=== PATIENT | female | born 1995 | race Two or more races ===

== ENCOUNTER 2017-02-20 17:05 | Emergency (ER) | payer SELFPAY ==
[~2017-02-20] VITALS: Ht 154.9 cm; Wt 88.0 kg
[2017-02-20] MEDS ORDERED: IV NORMAL SALINE 1000ML BAG 1,000 ML IV ONE (17:30)
[2017-02-20 17:44] LABS: BILIRUBIN,URINE NEGATIVE (NEG); GLUCOSE,URINE NEGATIVE (NEG); NITRITE,URINE NEGATIVE (NEG); PH,URINE 5.5; PROTEIN,URINE NEGATIVE (NEG-TRACE); UROBILINOGEN,URINE 0.2 mg/dL (0.2 mg/dL)
[2017-02-20 17:51] LABS: BACTERIA,URINE MANY /HPF (0-FEW); RBC,URINE 0 /HPF (0-2); SQUAMOUS EPITHELIAL CELL,UR MANY /LPF
[2017-02-20 18:01] LABS: BASO # 0.1 x10^3/uL (0.0-0.2); BASO % 1 % (0-3); EOS % 1 % (0-3); HEMATOCRIT 38.8 % (36.0-47.0); LYMPH # 2.2 x10^3/uL (1.0-4.8); LYMPH % 20 % (24-48); MEAN CORPUSCULAR HEMOGLOBIN 31 pg (25-35); MEAN CORPUSCULAR HGB CONC 33 g/dL (31-37); MEAN CORPUSCULAR VOLUME 91 fL (79-100); MONO % 7 % (0-9); NEUT % 72 % (31-73); PLATELET COUNT 240 x10^3/uL (140-400); RED BLOOD COUNT 4.26 x10^6/uL (3.50-5.40); RED CELL DISTRIBUTION WIDTH 14.1 % (11.5-14.5); WHITE BLOOD COUNT 11.1 x10^3/uL (4.0-11.0)
--- NOTE | 2017-02-20 18:01 | RAD ---
EXAM: Obstetric ultrasound. HISTORY: Pelvic pain in . COMPARISON: None. FINDINGS: Sonographic evaluation of the pelvis was performed transabdominally. The uterus is anteverted and measures 9.9 x 7.1 x 7.6 cm. There is a single intrauterine gestation measuring 11 weeks 2 days. heart rate is 175 bpm. No subchorionic collection is identified. The right ovary measures 3.4 x 1.6 x 2.0 cm. The left measures 3.3 x 2.3 x 1.5 cm. There is normal flow bilaterally. IMPRESSION: 1. Single intrauterine gestation measuring 11 weeks 2 days. heart rate 175 bpm. Electronically signed by: Ariana Camara MD (02/20/2017 5:57 PM) [facility]
[2017-02-20 18:17] LABS: CREATININE 0.7 mg/dL (0.6-1.0); GFR 106.7; POTASSIUM 3.9 mmol/L (3.5-5.1)
[2017-02-20 18:30] LABS: ALBUMIN 3.2 g/dL (3.4-5.0); ALBUMIN/GLOBULIN RATIO 0.8 (1.0-1.7); TOTAL BILIRUBIN 0.1 mg/dL (0.2-1.0); TOTAL PROTEIN 7.4 g/dL (6.4-8.2)
--- NOTE | 2017-02-20 18:37 | PHYS DOC ---
Past Medical History Past Medical History: No Pertinent History Past Surgical History: No Surgical History Alcohol Use: None Drug Use: None Adult General Chief Complaint Chief Complaint: ABDOMINAL PAIN IN HPI HPI Patient is a 21 year old female who is 1 para 0 who presents to the ER today secondary to abdominal discomfort. Patient reports she found that she is approximately 3 days ago. Patient has any hypertension diabetes liver longer kidney pals. Patient had no abdominal surgeries. Patient reports she has not been in the past. Patient does not smoke or do any drugs. Patient is allergic to any medications. Patient denies any prior abdominal surgeries. Patient reports her last menstrual period was normal was November 27. Patient presents here today complaining of suprapubic abdominal discomfort and a stretching sensation. Patient has any vaginal bleeding or vaginal discharge. Patient has any fevers shakes chills. Patient reports been feeling nauseous with a couple episodes of vomiting over the last couple days. Patient has any diarrhea. Patient has any dysuria frequency or urgency. Patient has any cough cold or runny nose. Patient has any chest pain or shortness of breath. Patient's physical exam the ER was significant for some mild tenderness to palpation in the suprapubic region. Patient has no rebound or guarding. Patient does not present with any signs or symptoms O be consistent with an acute surgical abdomen. Constitutional: Denies fever or chills [] Eyes: Denies change in visual acuity, redness, or eye pain [] HENT: Denies nasal congestion or sore throat [] All other review systems are negative except as documented in the history of present illness portion. Constitutional: Well developed, well nourished, no acute distress, non-toxic appearance. [] HENT: Normocephalic, atraumatic, bilateral external ears normal, oropharynx moist, no oral exudates, nose normal. [] Eyes: no discharge. [] Neck: Normal range of motion, no tenderness, supple, no stridor. [] Cardiovascular:Heart rate regular rhythm, Lungs & Thorax: Bilateral breath sounds clear to auscultation [] Abdomen: Bowel sounds normal, soft, mild. Pubic tenderness, no masses, no pulsatile masses. [] Skin: Warm, dry, no erythema, no rash. [] Back: No tenderness, no CVA tenderness. [] Extremities: No tenderness, no cyanosis, no clubbing, ROM intact, no edema. [] Neurologic: Alert and oriented X 3, normal motor function, normal sensory function, no focal deficits noted. [] Psychologic: Affect normal, judgement normal, mood normal. [] Patient's ER workup was significant for normal labs. Patient has a normal urinalysis, CBC, chemistry. Patient's ultrasound revealed an 11 week IUP with heart activity. Patient be given a copy of the ultrasound pictures. Assessment and plan this is a 21-year-old female who presents here today secondary to abdominal discomfort while . Patient is 1 para 0. Patient has no history of ectopic or tubal pregnancies in the past. Patient's ultrasound was unremarkable and revealed an 11 week intrauterine with heart activity. Patient will be discharged home. Patient will need to follow-up with her primary care physician/OB doctor for further OB care. Patient does not have any active vaginal bleeding, vaginal discharge, vaginal complaints at this time. Patient be stable for discharged home. Laboratory Tests Test 02/20/17 16:33 02/20/17 17:23 02/20/17 17:55 Bedside Urine HCG, Qualitative Hcg positive Urine Collection Type Unknown Urine Color Yellow Urine Clarity Clear Urine pH 5.5 Urine Specific Goodman 1.020 Urine Protein Negative mg/dL Urine Glucose (UA) Negative mg/dL Urine Ketones (Stick) Negative mg/dL Urine Blood Negative Urine Nitrite Negative Urine Bilirubin Negative Urine Urobilinogen Dipstick 0.2 mg/dL Urine Leukocyte Esterase Small Urine RBC 0 /HPF Urine WBC 1-4 /HPF Urine Squamous Epithelial Cells Many /LPF Urine Bacteria Many /HPF Urine Mucus Mod /LPF White Blood Count 11.1 x10^3/uL Red Blood Count 4.26 x10^6/uL Hemoglobin 13.0 g/dL Hematocrit 38.8 % Mean Corpuscular Volume 91 fL Mean Corpuscular Hemoglobin 31 pg Mean Corpuscular Hemoglobin Concent 33 g/dL Red Cell Distribution Width 14.1 % Platelet Count 240 x10^3/uL Neutrophils (%) (Auto) 72 % Lymphocytes (%) (Auto) 20 % Monocytes (%) (Auto) 7 % Eosinophils (%) (Auto) 1 % Basophils (%) (Auto) 1 % Neutrophils # (Auto) 7.9 x10^3uL Lymphocytes # (Auto) 2.2 x10^3/uL Monocytes # (Auto) 0.7 x10^3/uL Eosinophils # (Auto) 0.1 x10^3/uL Basophils # (Auto) 0.1 x10^3/uL Sodium Level 138 mmol/L Potassium Level 3.9 mmol/L Chloride Level 104 mmol/L Carbon Dioxide Level 26 mmol/L Anion Gap 8 Blood Urea Nitrogen 8 mg/dL Creatinine 0.7 mg/dL Estimated GFR (Cockcroft-Gault) 106.7 BUN/Creatinine Ratio 11 Glucose Level 79 mg/dL Calcium Level 9.0 mg/dL Total Bilirubin 0.1 mg/dL Aspartate Amino Transf (AST/SGOT) 15 U/L Alanine Aminotransferase (ALT/SGPT) 26 U/L Alkaline Phosphatase 60 U/L Total Protein 7.4 g/dL Albumin 3.2 g/dL Albumin/Globulin Ratio 0.8 Current Medications Medications (Trade) Dose Ordered Sig/Edward Route PRN Reason Start Time Stop Time Status Last Admin Dose Admin Sodium Chloride 1,000 ml @ 1,000 mls/hr 1X ONCE IV 02/20/17 17:30 02/20/17 18:29 DC 02/20/17 17:54 1,000 MLS/HR Current Medications Current Medications Current Medications Medications (Trade) Dose Ordered Sig/Edward Start Time Stop Time Status Last Admin Dose Admin Sodium Chloride 1,000 ml @ 1,000 mls/hr 1X ONCE 02/20/17 17:30 02/20/17 18:29 DC 02/20/17 17:54 1,000 MLS/HR Allergies Allergies Allergies Coded Allergies Type Severity Reaction Last Updated Verified No Known Drug Allergies 02/20/17 No Current Patient Data Vital Signs Vital Signs Date Time Temp Pulse Resp B/P (MAP) Pulse Ox O2 Delivery O2 Flow Rate FiO2 02/20/17 17:15 98.2 65 16 122/73 (89) 95 Room Air 98.2 Lab Values Laboratory Tests Test 02/20/17 16:33 02/20/17 17:23 02/20/17 17:55 POC Urine HCG, Qualitative Hcg positive (Negative) Urine Collection Type Unknown Urine Color Yellow Urine Clarity Clear Urine pH 5.5 Urine Specific Goodman 1.020 Urine Protein Negative mg/dL (NEG-TRACE) Urine Glucose (UA) Negative mg/dL (NEG) Urine Ketones (Stick) Negative mg/dL (NEG) Urine Blood Negative (NEG) Urine Nitrite Negative (NEG) Urine Bilirubin Negative (NEG) Urine Urobilinogen Dipstick 0.2 mg/dL (0.2 mg/dL) Urine Leukocyte Esterase Small (NEG) Urine RBC 0 /HPF (0-2) Urine WBC 1-4 /HPF (0-4) Urine Squamous Epithelial Cells Many /LPF Urine Bacteria Many /HPF (0-FEW) Urine Mucus Mod /LPF White Blood Count 11.1 x10^3/uL (4.0-11.0) H Red Blood Count 4.26 x10^6/uL (3.50-5.40) Hemoglobin 13.0 g/dL (12.0-15.5) Hematocrit 38.8 % (36.0-47.0) Mean Corpuscular Volume 91 fL (79-100) Mean Corpuscular Hemoglobin 31 pg (25-35) Mean Corpuscular Hemoglobin Concent 33 g/dL (31-37) Red Cell Distribution Width 14.1 % (11.5-14.5) Platelet Count 240 x10^3/uL (140-400) Neutrophils (%) (Auto) 72 % (31-73) Lymphocytes (%) (Auto) 20 % (24-48) L Monocytes (%) (Auto) 7 % (0-9) Eosinophils (%) (Auto) 1 % (0-3) Basophils (%) (Auto) 1 % (0-3) Neutrophils # (Auto) 7.9 x10^3uL (1.8-7.7) H Lymphocytes # (Auto) 2.2 x10^3/uL (1.0-4.8) Monocytes # (Auto) 0.7 x10^3/uL (0.0-1.1) Eosinophils # (Auto) 0.1 x10^3/uL (0.0-0.7) Basophils # (Auto) 0.1 x10^3/uL (0.0-0.2) Sodium Level 138 mmol/L (136-145) Potassium Level 3.9 mmol/L (3.5-5.1) Chloride Level 104 mmol/L (98-107) Carbon Dioxide Level 26 mmol/L (21-32) Anion Gap 8 (6-14) Blood Urea Nitrogen 8 mg/dL (7-20) Creatinine 0.7 mg/dL (0.6-1.0) Estimated GFR (Cockcroft-Gault) 106.7 BUN/Creatinine Ratio 11 (6-20) Glucose Level 79 mg/dL (70-99) Calcium Level 9.0 mg/dL (8.5-10.1) Total Bilirubin 0.1 mg/dL (0.2-1.0) L Aspartate Amino Transferase (AST) 15 U/L (15-37) Alanine Aminotransferase (ALT) 26 U/L (14-59) Alkaline Phosphatase 60 U/L (46-116) Total Protein 7.4 g/dL (6.4-8.2) Albumin 3.2 g/dL (3.4-5.0) L Albumin/Globulin Ratio 0.8 (1.0-1.7) L Laboratory Tests 02/20/17 17:55 Laboratory Tests 02/20/17 17:55 EKG EKG [] Radiology/Procedures Radiology/Procedures [] Course & Med Decision Making Course & Med Decision Making Pertinent Labs and Imaging studies reviewed. (See chart for details) [] Dragon Disclaimer Dragon Disclaimer This electronic medical record was generated, in whole or in part, using a voice recognition dictation system. Departure Departure Impression: Primary Impression: Abdominal pain affecting Disposition: 01 HOME, SELF-CARE Condition: IMPROVED Referrals: NO PCP (PCP) Patient Instructions: Abdominal Pain During Additional Instructions: Please follow up with her primary care physician or OB doctor for further OB care. Return to the ER for any further pain, bleeding, any other concerns. RAFAEL JUNIOR MD Feb 20, 2017 18:37
[2017-02-20 18:50] VITALS: BP 96/51
== END 2017-02-20 19:01 | disposition home or self-care (01) ==
LOC: ER 17:05
DX: O26.891 Other specified pregnancy related conditions, first trimester (principal); R10.30 Lower abdominal pain, unspecified; R11.2 Nausea with vomiting, unspecified; Z3A.11 11 weeks gestation of pregnancy
CPT/HCPCS: 36415; 76801; 80053; 81001; 81025; 84702; 85027; 86901; 87086; 96360; 99285; J7030